=== PATIENT | female | born 1950 | race Caucasian/White ===

== ENCOUNTER 2017-02-03 14:39 | Inpatient (IN) | payer BC, MEDICARE ==
[~2017-02-03] VITALS: Ht 152.4 cm; Wt 44.0 kg
[~2017-02-03 14:39] MED LIST: CARAFATE DPS1 GM PO; FEOSOL-DPS325 MG PO; PRILOSEC DPS20 MG PO
--- NOTE | 2017-02-08 10:38 | ER ---
ADMIT: 02/03/2017 RM/LOC: 521 [facility] MR#: [id number] 2620 [facility] [address] [place] [phone] MAXIMO CHOI [address] [place] [address] Emergency Room Report SEX: F AGE: 66 : 1950 DATE: 02/03/2017 CHIEF COMPLAINT: Abdominal pain. HISTORY OF PRESENT ILLNESS: This is a 66-year-old female, who presents after finding a small bowel obstruction on CT today. The patient was at her oncologist earlier today. They were completing a routine CT of her chest and abdomen and pelvis for some cancer screening as she does have a known esophageal and stomach cancer. They found a small bowel obstruction. Family reports that she had a J-tube placed last . Since this time, she has had some off and on nausea, vomiting, and abdominal pain. At present, she is quite comfortable. Admits to some nausea, but no real abdominal pain. She does use a fentanyl patch as well as oxycodone for pain. PAST MEDICAL HISTORY: Cardiac disease, diabetes, hypertension, pancreatitis, uterine prolapse, H. pylori, peptic ulcer disease. She did have the J-tube placed in [place] last . COURSE IN THE EMERGENCY ROOM: The patient was seen and examined. She is in no acute distress. Her belly is soft and supple. She does have a J-tube site, which does have some clear fluid draining around it. No obvious erythema or tenderness about the J-tube site. I did review the CT showing the small bowel obstruction, questioning a possible ischemic decompensation of the cecum. White count 12,000. Hemoglobin 10.7, hematocrit 31.9. Lactic acid 1.2. Sodium 132, potassium 4, CO2 of 32, BUN 20, creatinine 0.4, AST 37, ALT 26. I did discuss this patient with Dr. Youngblood, who will admit. I did get her started on some fluids and gave her some morphine and Reglan for nausea and pain. IMPRESSION: 1. Small bowel obstruction. 2. Esophageal and stomach malignancy. DISPOSITION: Patient will be admitted to med/surg to Dr. Youngblood for Dr. Almonte. Discharged to the floor in guarded condition. JOSIE Burgess / Pete Pierson MD / christen JOB #: [id number] CC: Kayden Almonte MD, Attending Physician Kadyen Almonte MD, Family Physician
--- NOTE | 2017-02-16 11:26 | CO ---
ADMIT: 02/03/2017 RM/LOC: 521 [facility] MR#: [id number] [address] [phone] MAXIMO CHOI [address] [place] [address] Consultation SEX: F AGE: 66 : 1950 DATE OF CONSULTATION: 02/04/2017 ATTENDING PHYSICIAN: Kayden Almonte MD CONSULTING PHYSICIAN: Mitul Sanders MD CHIEF COMPLAINT: Abdominal pain and question small bowel obstruction. HISTORY OF PRESENT ILLNESS: This is a pleasant 66-year-old female patient of Dr. Almonte, whom I was asked to see in surgical consultation. The patient has a significant past medical history of a proximal gastric cancer and has undergone a subtotal gastrectomy in December of [address] Fernando De La Cruz in [place]. The patient had a T4 lesion with 10/28 lymph nodes involved at that time. She then underwent chemotherapy and radiation postoperatively it sounds like. She unfortunately has had a recurrence of her tumor at the gastroesophageal anastomosis or junction. With these findings, she has undergone I believe three rounds of FOLFIRI chemotherapy. She has not received any Avastin at this point. She has had problems though maintaining her nutrition status. She has not been able to eat. She has been fairly nauseated. She has had a lot of dysphagia, so she had an esophageal stent placed in [place] within the last several weeks. And then had a percutaneous J- tube placed just last week at [facility]. Since then, the patient really has not tolerated anything as far as J-tube feeds. She has been nauseated, but now has had some worse abdominal pain. On her visit to Oncology yesterday because of her increasing abdominal pain and vomiting, had a CT scan of chest, abdomen, and pelvis. CT scan shows no evidence of any additional metastatic disease, but she did have a dilated small bowel throughout as well as a dilated cecum and ascending colon with pneumatosis to the right colon. So, she was admitted to Dr. Youngblood through the ER. Dr. Almonte saw her this morning, and then I was asked to see her in surgical consultation. She does still complain of abdominal pain. She is nauseated and is kind of spitting up some greenish fluid. She is otherwise awake and alert, and I was able to talk to her through use of an hog driver. She has not been able to have her last round of chemo because she was feeling too ill she said. PAST MEDICAL HISTORY: All well outlined in chart. PREVIOUS SURGERIES: Again, of note, she has had a previous subtotal gastrectomy with gastroesophageal anastomosis and now the recurrence. ALLERGIES: I BELIEVE ARE NONE. MEDICATIONS: She is getting FOLFIRI for chemo, but no Avastin at this point. SOCIAL HISTORY: She denies tobacco or alcohol use. FAMILY HISTORY: Noncontributory. REVIEW OF SYSTEMS: A 10-point review of systems essentially negative with ADMIT: 02/03/2017 RM/LOC: 521 [facility] MR#: [id number] [address] [place] [phone] [place] [address] Consultation SEX: F AGE: 66 : 1950 exception of her current just debilitation, fatigue, nausea, vomiting, and her now right-sided abdominal pain. PHYSICAL EXAMINATION: GENERAL: She is alert. She is oriented. She is obviously uncomfortable, but is really in no acute distress at this time. HEENT: Normal. LUNGS: Clear. HEART: Regular. ABDOMEN: Very thin. It is distended. She is tender throughout, but mostly in the right side, little bit of focal guarding. No rebound. No mass or organomegaly appreciated. She does have a J-tube in the left side with a little bit of brownish drainage around the J-tube site at the skin. EXTREMITIES: Warm and pink without edema. LABORATORY DATA: Her white blood cell count is elevated with a left shift. Her albumin, I believe, was 1.8. CT scan of chest, abdomen, and pelvis does reveal dilated loops of small bowel throughout. No obvious transition point, but the biggest concern in my opinion is the pneumatosis to her right colon. Her white count, I think, is too high for this to be just a typhlitis, concerned about this being an ischemic event causing the pneumatosis and then subsequent ileus. In addition that she does have the thickening around the gastroesophageal junction and the stent that is in place, the stent appears to be maybe a little bit deep in the stomach and that I wonder if that is causing some of her nausea and vomiting issues also. ASSESSMENT: 1. Recurrent gastric cancer with obstruction at the gastroesophageal anastomosis with subsequent stent placement. 2. Malnutrition. 3. Right-sided pain. 4. Pneumatosis to the right colon. 5. Ileus versus small bowel obstruction. PLAN: I had a very long discussion with the patient and her family today as well as I have also talked about this patient with Dr. Almonte and Dr. Gutiérrez, both. The patient has a very unfortunate situation with this recurrent gastric cancer for which she is undergoing more chemotherapy. In talking with Dr. Gutiérrez, the patient is not a candidate for another operation, at least in his discussions with Dr. Fernando De La Cruz in [place]. The family does not seem to understand this, they are still in the mindset that this cancer is going to be cured and I clearly stated with the patient that I think that is really not the case that this is really difficult situation and something that is not going to be curable. So, essentially after a long conversation about her just general prognosis with the cancer that she has and her general debilitated state, we talked about three different options. First option would be continuing with medical treatment with IV antibiotics, IV fluids, bowel rest, etc. in hopes that this may just be a typhlitis type of a picture although I doubt that and that she may get better from this acute ADMIT: 02/03/2017 RM/LOC: 521 [facility] MR#: [id number] [address] [facility] [address] [place] [id number] CYN CHOIPC[facility] [place] [address] Consultation SEX: F AGE: 66 : 1950 episode. The second option would be exploratory laparotomy with a right colon resection. I did discuss that given her debilitated state that this is a higher risk surgery; risk for bleeding, infection, DVT, PE; likely if we did a resection, I would bring out an ostomy and not risk an anastomosis, failing or not healing correctly. So, she would likely have a permanent ileostomy most likely after a surgery like that. Ultimately, would not cure or fix the underlying cancer that she has and in fact would limit her ability to have chemotherapy for 6 to 8 weeks postoperatively. The third option we talked about was hospice or comfort care measures. The patient and family are not interested in that at all and want to do everything they can to "cure this and beat this cancer". So, for right now, they want to proceed with medical management. So, we will give her another 24 hours or so, see what happens. We will recheck some blood work tomorrow, re-examine her tomorrow, and make further plans based on how she is feeling or doing at that time. Mitul Sanders MD/ christen JOB #: [id number] CC: Kayden Almonte MD, Attending Physician Kayden Almonte MD, Family Physician
--- NOTE | 2017-02-22 08:23 | HP ---
ADMIT: 02/03/2017 RM/LOC: 521 [facility] MR#: [id number] [facility]#: [id number] [address] [facility] [address] [place] [phone] MAXIMO CHOI [address] [place] [address] History and Physical SEX: F AGE: 66 : 1950 DATE OF SERVICE: 02/04/2017 CHIEF COMPLAINT: Abdominal pain. HISTORY OF PRESENT ILLNESS: Maximo is a pleasant rather unfortunate 66- year-old female, who presented to her oncologist yesterday morning with ongoing abdominal pain. I had actually seen her in clinic on 02/02/2017 for hospitalization followup. Maximo again was seen on 02/02/2017 by me for hospital followup from her recent hospitalization at [facility]. She was at [facility] approximately a week prior to admission having had a J-tube placed for nutritional support for her end-stage gastric cancer. She was not really tolerating oral feeds and has been losing weight. The goal was to help her gain enough weight so that she could continue with her palliative chemotherapy. At the time of her visit with me, she was complaining of colicky abdominal pain and nausea, but no vomiting or diarrhea. No fevers. She was getting Osmolite 1.5 tube feeds over 12 hours in the overnight periods for nutritional support. I had actually spoken with her hospitalist at [facility], Dr. Vasquez, on 02/01/2017. At that time, he reported that she was tolerating the feeds, had been mildly hyponatremic but otherwise the remainder of her labs have been stable. In reviewing Maximo's labs and her medications with her during my visit on 02/02, I discovered that her pain was not well controlled on one oxycodone tablet and they were not using her nausea pills as ideally as possible. An abdominal x-ray at that time showed a nonspecific bowel gas pattern, but there were no air-fluid levels or transition points to suggest any bowel obstructions. Her film did show her previous biliary stent and her esophageal gastric stent at that time, she had no free air in her abdomen. She was discharged to home. However, I did make arrangements with her oncologist, Dr. Gutiérrez, to evaluate her in the nurse sane hours of 02/03/2017. Christiansen visited with Dr. Gutiérrez in the nurse sane hours of 02/03/2017 and decision was made to send her for a CT scan of her abdomen and pelvis again for her ongoing pain and further staging of her gastric cancer. Her CT scan yesterday showed evidence of a small-bowel obstruction and a decision was made to admit her to the hospital for further management and observation. In the overnight period, Christiansen notes that her pain has been under improved control with 10 mg of the oxycodone every 4 hours. She is having minimal nausea. She has not had any vomiting. She is passing gas. Her last bowel movement was on 02/02/2017. She has not had any fevers, cough, chest pain, shortness of breath, or rashes. She notes a foul smell from her J-tube at this time. PAST MEDICAL HISTORY: Remarkable for: 1. 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 2. History of H. pylori gastritis. ADMIT: 02/03/2017 RM/LOC: 521 [facility] MR#: [id number] [address] [place] [phone] MAXIMO CHOI [address] [place] [address] History and Physical SEX: F AGE: 66 : 1950 3. History of acute pancreatitis. 4. History of common bile duct leak, requiring biliary stent. 5. History of E. coli sepsis secondary to occluded biliary stent. 6. History of bile duct stricture, requiring biliary stent. 7. Failure to thrive. 8. Chronic iron deficiency anemia. 9. Gastroesophageal reflux disease. PAST SURGICAL HISTORY: 1. Subtotal open gastrectomy with Gerhard-en-Y reconstruction on 01/04/2015. 2. Omentectomy, 01/04/2015. 3. Cholecystectomy, 01/04/2015. 4. ERCP, 05/18/2016. 5. Tubal ligation. 6. Jejunostomy tube placement, 01/04/2017. 7. Biliary stent placement. 8. Esophageal gastric stent placement. ALLERGIES: NO KNOWN MEDICAL ALLERGIES. MEDICATIONS: Her outpatient medications include: 1. Reglan 10 mg t.i.d. 2. MiraLax 17 g daily. 3. Novolin N 2 units every 8 hours. 4. K-Phos two packets t.i.d. 5. Senna-S one tab at bedtime. 6. Decadron 8 mg with chemo. 7. Potassium chloride 20 mEq b.i.d. 8. Omeprazole 20 mg b.i.d. 9. Zofran 4 mg to 8 mg q.6h p.r.n. 10.Oxycodone 5 mg q.4 hours p.r.n. 11.Carafate 1 g before meals and at bedtime. SOCIAL HISTORY: She is a nonsmoker. She denies any alcohol or recreational drug use. She is . Her accompanies her in the hospital room today. FAMILY HISTORY: Noncontributory. REVIEW OF SYSTEMS: As per HPI. All others were reviewed and were negative. PHYSICAL EXAMINATION: VITAL SIGNS: Her blood pressure is 115/73, pulse 90, respirations 20, temp 97.7, O2 saturation is 98% room air. GENERAL: She is awake, alert, mildly uncomfortable appearing though in comparison to Wednesday when I last saw her, she does appear to have better pain control at this time. She is chronically ill and cachectic appearing consistent with an advanced cancer patient. HEENT: Normocephalic, atraumatic. ADMIT: 02/03/2017 RM/LOC: 521 [facility] MR#: [id number] [address] [place] [address] [place] [phone] MAXIMO CHOI [address] [place] [address] History and Physical SEX: F AGE: 66 : 1950 NECK: Supple. No lymphadenopathy. HEART: Regular rate and rhythm. No murmurs, gallops, or rubs. LUNGS: Clear to auscultation bilaterally. ABDOMEN: Soft, nondistended. Bowel sounds are hypoactive. She has a J-tube noted, situated between the epigastrium and left upper quadrant. There is a feculent odor during her abdominal exam. Palpation reveals no luis tenderness. No rebound or guarding. EXTREMITIES: No cyanosis, clubbing, or edema. LABORATORY AND X-RAY DATA: Most recent set of labs from this morning shows a CBC with a white count of 13.4, hemoglobin of 9.5, and platelet of 495. She, on previous CBCs at the time of admission, did have mildly elevated bands of 11%. CMP remarkable primarily for a low potassium at 3.7 and albumin of 1.8. Creatinine of 0.3, [id number] ratio of 76. Chest x-ray this morning shows a left lower lobe infiltrate and a left-sided pleural effusion. Abdominal x-ray this morning shows a nonspecific bowel gas pattern. Again, CT scan of her abdomen and pelvis done yesterday prior to admission shows findings suggestive with a small bowel obstruction with multiple dilated loops of small bowel and air noted in the wall of the cecum, unable to rule out ischemic decompensation. ASSESSMENT AND PLAN: 1. Poorly differentiated adenocarcinoma of the stomach. Her malignancy is sitting up around the gastroesophageal junction region. 2. Protein-calorie malnutrition. 3. Failure to thrive. 4. Hypokalemia. 5. Small bowel obstruction versus ileus. 6. History of Helicobacter pylori gastritis. 7. History of bile duct stricture with placement of stent. 8. History of occlusion of biliary stent. 9. Left lower lobe pneumonia. Plan for Christiansen at this time will be as follows: She is currently n.p.o. We will be transitioning over to IV medications, those medications amenable to that. Most notably, her omeprazole and potassium will be switched over to IVs. I am going to stop her oxycodone and switch her to OxyContin 15 mg b.i.d. as I think much of overseeing here is chronic cancer pain in addition to her ileus ADMIT: 02/03/2017 RM/LOC: 521 [facility] MR#: [id number] [address] [phone] MAXIMO CHOI [address] [place] [address] History and Physical SEX: F AGE: 66 : 1950 pain. I have asked General Surgery to consult for the possible small bowel obstruction versus ileus. Dr. Gutiérrez, oncologist, has been consulted. I have actually spoken with him already this morning about Maximo. I am going to start her on Levaquin and Zosyn for the left-sided pneumonia and infiltrate, and ask Dr. Edwards with Infectious Disease consult for antibiotic choice, duration, etc. We will plan on repeating a chest x-ray again in the morning along with a set of electrolytes, Mag, phos, and CBC. Maximo and her at this time do not wish to proceed with any supportive care or hospice treatments, they would like to continue being aggressive with her care. She also remains a full code. Further management for Maximo will be dependent on her hospital course and clinical course. Kayden Almonte MD/ christen JOB #: [id number] CC: Kayden Almonte MD, Attending Physician Kayden Almonte MD, Family Physician
--- NOTE | 2017-03-05 08:27 | DS ---
ADMIT: 02/03/2017 RM/LOC: 1 [facility] MR#: [id number] [facility] [place] [address] General Discharge Summary SEX: F AGE: 66 : 1950 ADMISSION DATE: 02/03/2017 DISCHARGE DATE: 02/04/2017 ADMITTING DIAGNOSES: 1. Poorly differentiated adenocarcinoma of the stomach. 2. Protein-calorie malnutrition. 3. Failure to thrive. 4. Hypokalemia. 5. Small bowel obstruction versus ileus. 6. History of Helicobacter pylori gastritis. 7. History of common bile duct stricture with placement of stent. 8. Occlusion of biliary stent. 9. Left lower lobe pneumonia. DISCHARGE DIAGNOSES: 1. Poorly differentiated adenocarcinoma of the stomach. 2. Protein-calorie malnutrition. 3. Failure to thrive. 4. Hypokalemia. 5. Small bowel obstruction versus ileus. 6. History of Helicobacter pylori gastritis. 7. History of common bile duct stricture with placement of stent. 8. Occlusion of biliary stent. 9. Left lower lobe pneumonia. CONSULTATIONS: Dr. Sanders, General Surgery, consulted 02/04/2017, possible small-bowel obstruction. Dr. Gutiérrez, Hematology/Oncology, consulted on 02/04/2017 for metastatic esophageal cancer. PROCEDURES: None. ADMIT: 02/03/2017 RM/LOC: 1 [facility] MR#: [id number] [address] [place] [address] CHOI, [address] [address] General Discharge Summary SEX: F AGE: 66 : 1950 HISTORY OF PRESENT ILLNESS: Елена is a very pleasant, rather unfortunate, 67-year-old, female, who presented to her oncologist yesterday were on 02/03/2017 with ongoing abdominal pain. Subsequent workup in the ER showed possible ischemic changes in the ascending colon, and cecum. She was subsequently admitted to the hospital for pain control. HOSPITAL COURSE: Dr. Sanders with General Surgery was consulted and did not feel that emergent surgical intervention was required. Dr. Gutiérrez with Hematology/Oncology was consulted and decision was made to transfer Елена to her surgical oncologist at [facility] on the 02/04 as such she will be discharged to [facility] under the care of Dr. Fernando De La Cruz. Kayden Almonte MD/ christen JOB #: [id number] CC: Kayden Almonte MD, Attending Physician Kayden Almonte MD, Family Physician
--- NOTE | 2017-03-10 08:05 | CO ---
ADMIT: 02/03/2017 RM/LOC: [facility] MR#: [id number] [facility] [id number] [address] [id number] [facility] [address] [place] [id number] Consultation SEX: F AGE: 66 : 1950 DATE OF CONSULTATION: 02/04/2017 ATTENDING PHYSICIAN: Kayden Almonte MD CONSULTING PHYSICIAN: Raad Gutiérrez MD REASON FOR CONSULTATION: Metastatic esophageal cancer. HISTORY OF PRESENT ILLNESS: The patient is a 66-year-old female, who has had a difficult time in the last several months when she was discovered to have relapsed esophageal cancer that appears to be incurable. She had a history of localized esophageal cancer that was considered quite high risk in 2014 that was treated with up-front surgical resection showing T4 invasion with 10/28 lymph nodes but negative surgical margins. She then was treated with postoperative capecitabine and radiation therapy and then received a couple additional cycles of full dose Xeloda after radiation was completed. She has been followed in observation since without recurrence until November 2016 when she had an upper endoscopy for dysphagia and weight loss showing now recurrent adenocarcinoma. She was considered to have unresectable disease. We therefore started her on FOLFIRI chemotherapy for palliative purposes on 12/18/2016. She also had an esophageal stent placed to help with her swallowing function. All of her surgical care thus far has been performed at [facility] by Surgical Oncology with Dr. Fernando De La Cruz. Over the last few days, she has been experiencing a lot of abdominal pain and nausea symptoms. She saw Dr. Almonte a few days ago and had an x-ray in his clinic, which was unremarkable. She was then seen by us yesterday and sent for a CT scan, which ultimately showed possible small bowel obstruction. Dr. Sanders has been consulted and on his interpretation of the CT scan, there is concern for pneumatosis of her right colon and raises the likelihood that this is from ischemic changes. She is being treated with supportive care at this point. His consultation with her discussed surgical resection versus supportive care versus consideration of hospice. We have had discussions with her and the family as well and they are quite opposed to the idea of hospice. They seem to still have this hope that she could be cured despite several discussions that we have had with her regarding the likelihood that this is not a curable situation. I did talk with Dr. Fernando De La rCuz after evaluating the patient today and they would be willing to have her transfer there for a higher level of care given her complicated surgical history and likely complex postoperative care that will be required if she needs surgical intervention. PAST MEDICAL HISTORY: Anemia, gastrectomy, omentectomy, cholecystectomy, and severe acid reflux. ALLERGIES: TO MEDICATIONS ARE REVIEWED IN THE CHART. SOCIAL HISTORY: The patient is . She is a nonsmoker and does not abuse alcohol. ADMIT: 02/03/2017 RM/LOC: [facility] MR#: [id number] [address] [place] [id number] [place] [address] Consultation SEX: F AGE: 66 : 1950 FAMILY HISTORY: Her mother's health has been good. She is not aware of any recurrent hereditary malignancies in the family. REVIEW OF SYSTEMS: See HPI. Otherwise, complete review of systems was obtained and is negative. PHYSICAL EXAMINATION: VITAL SIGNS: Temp 97, pulse 75, respirations 16, blood pressure 107/71. GENERAL: The patient is in mild distress. She provides me good history. She is alert and oriented. HEENT: Mucous membranes are moist. No oral lesions are seen. Extraocular muscles were intact. Pupils are reactive and symmetrical. NECK: Without adenopathy or JVD. HEART: Regular rate and rhythm without murmur. LUNGS: Clear to auscultation bilaterally without any crackles or wheezes. ABDOMEN: Soft, mildly tender without distention. She has decreased bowel sounds throughout. EXTREMITIES: No edema, rashes, lesions, or adenopathy is appreciated. LABORATORY DATA: White count was 13.9, hemoglobin 12.0, platelets 426, and lactic acid was 1.2. Metabolic panel shows no significant abnormalities. Bilirubin 1.6, albumin 1.9, bicarb is 32, creatinine is 0.4. CT scan was reviewed. ASSESSMENT: 1. Metastatic esophageal cancer on palliative chemotherapy with 5-FU, and irinotecan with the most recent dose given on 01/15/2017. Her white blood cell count is adequate at this point. I would consider her fairly safe from immune system standpoint to proceed with surgery if needed. She has not had any Avastin that might complicate things. 2. Possible ischemic bowel. 3. Recent J-tube placement for her malnutrition. RECOMMENDATIONS: I talked to the patient at length as well as her family today. I have also coordinated care extensively with the surgeon, Dr. Almonte, and with Dr. Fernando De La Cruz at [facility]. In the end, we have all decided that her best option would be to proceed with a transfer to [facility] where she can receive a higher level of care that we really cannot offer here regarding her prior ADMIT: 02/03/2017 RM/LOC: [facility] MR#: [id number] [address] [place] [id number] [place] [address] Consultation SEX: F AGE: 66 : 1950 gastrectomy and potential surgery that would be required at this point. It is unclear if they will proceed with the surgical exploration today or tomorrow or ultimately, she is best treated with supportive care. Again, we have talked with her and the family at length about potential hospice care, and she is not interested. From a cancer standpoint, we did have the CT scans performed yesterday, which really showed no evidence of active disease elsewhere. If we could get her over this current bowel issue and get her to nutrition build back up, I certainly have some hope that she can survive a fairly good length of time with our palliative chemotherapy. I do think we have the ability to hold her chemotherapy for several weeks now during this recovery phase given that her CT scan otherwise looks so good. I appreciate this consultation. Raad Gutiérrez MD/ christen JOB #: [id number] CC: Kayden Almonte MD, Attending Physician Kayden Almonte MD, Family Physician
== END 2017-02-04 20:45 | disposition short-term general hospital (02) | DRG 393 ==
LOC: ER 14:39 → RAD.S 14:39 → ER 14:39 → RAD.S 15:00 → EDSTATUS 15:00 → 5MS 19:20
DX: K55.9 Vascular disorder of intestine, unspecified (principal); J18.9 Pneumonia, unspecified organism; E46 Unspecified protein-calorie malnutrition; C16.0 Malignant neoplasm of cardia; C77.2 Secondary and unspecified malignant neoplasm of intra-abdominal lymph nodes; D63.0 Anemia in neoplastic disease; I10 Essential (primary) hypertension; E87.1 Hypo-osmolality and hyponatremia; Z68.1 Body mass index [BMI] 19.9 or less, adult; G89.3 Neoplasm related pain (acute) (chronic); E87.6 Hypokalemia; K21.9 Gastro-esophageal reflux disease without esophagitis; E11.9 Type 2 diabetes mellitus without complications; Z87.11 Personal history of peptic ulcer disease; Z93.4 Other artificial openings of gastrointestinal tract status; Z79.4 Long term (current) use of insulin